=== PATIENT | female | born 1990 | race Caucasian/White ===

== ENCOUNTER 2020-09-23 14:03 | Emergency (ER) | payer OTHER ==
[2020-09-23 14:54] LABS: BILIRUBIN NEGATIVE (NEGATIVE); BLOOD NEGATIVE Ery/uL (NEGATIVE); CLARITY CLEAR (CLEAR); COLOR YELLOW (YELLOW); GLUCOSE (U) NORMAL (NORMAL); LEUKOCYTES TRACE Leu/uL (NEGATIVE); NITRITE NEGATIVE (NEGATIVE); PROTEIN NEGATIVE (NEGATIVE); SPECIFIC GRAVITY 1.015 (1.001-1.030); pH 7.5 (5.0-9.0)
[2020-09-23 14:58] LABS: BACTERIA TRACE
[2020-09-23] MEDS ORDERED: METRONIDAZOLE500 MG PO (15:50)
[2020-09-24 20:07] LABS: CHLAMYDIA TRACHOMATIS, NAA Negative (Negative); NEISSERIA GONORRHOEAE, NAA Negative (Negative)
== END 2020-09-23 15:57 | disposition home or self-care (01) ==
LOC: FER 14:03
PROVIDERS: Physician Assistant
DX: O23.592 Infection of other part of genital tract in pregnancy, second trimester (principal); O98.812 Other maternal infectious and parasitic diseases complicating pregnancy, second trimester; B37.3 Candidiasis of vulva and vagina; Z88.8 Allergy status to other drugs, medicaments and biological substances; Z3A.17 17 weeks gestation of pregnancy
CPT/HCPCS: 81001; 87210; 87491; 87591; 99284